=== PATIENT | male | born 1985 | race Hispanic/Latino ===

== ENCOUNTER 2018-07-09 02:47 | Emergency (ER) | payer BC, OTHER ==
[2018-07-09] MEDS ORDERED: NA CHLORIDE 0.9% 1,000 ML ONE (03:34)
[2018-07-09 03:40] LABS: Absolute Lymphocytes (CBC) 3.2 K/uL (0.7-4.9); Absolute Monocytes 0.7 K/uL (0.1-1.3); Absolute Neutrophil 4.2 K/uL (1.8-8.0); Basophils % 0.5 % (0-1.3); Hematocrit 44.4 % (39.6-49.0); Lymphocytes % 38.3 % (15.3-44.8); Monocytes % 8.9 % (3.3-12.3); RBC Red Blood Cell Count 5.61 M/uL (4.33-5.43)
[2018-07-09 03:52] LABS: ALT/SGPT 77 U/L (12-78); AST/SGOT 37 U/L (15-37); Albumin 3.8 g/dL (3.4-5.0); Alkaline Phosphatase 105 U/L (45-117); BUN Blood Urea Nitrogen 17 mg/dL (7-18); Bicarbonate 30 mmol/L (21-32); Bilirubin Direct < 0.1 mg/dL (0-0.2); Bilirubin Total 0.3 mg/dL (0.2-1.0); Glucose Level 104 mg/dL (74-106); Lipase 306 U/L (73-393); Potassium 3.8 mmol/L (3.5-5.1); Protein, Total 7.4 g/dL (6.4-8.2); Sodium Level 145 mmol/L (136-145)
[2018-07-09 05:47] LABS: Urine Blood NEGATIVE (NEG); Urine Glucose NEGATIVE (NEG); Urine Protein TRACE (NEG); Urine Specific Gravity >1.030 (1.005-1.030)
--- NOTE | 2018-07-09 05:54 | EDPHYS ---
Physician Documentation [facility] Name: Remy Hooker Age: 32 yrs Sex: Male : 1985 Arrival Date: 07/09/2018 Time: 02:49 Bed 5 Private MD: Vic Dsouza B ED Physician Ezekiel Johnston HPI: 07/09 03:07 This 32 yrs old Male presents to ER via Ambulatory with complaints of Side Abd pkl Pain. 03:07 The patient complains of pain in the left flank. The pain radiates to the left lower pkl quadrant. Onset: The symptoms/episode began/occurred 6 month(s) ago, and became worse today. Associated signs and symptoms: The patient has no apparent associated signs or symptoms. Historical: - Allergies: 03:05 No Known Allergies; lp1 - Home Meds: 03:05 None [Active]; lp1 - PMHx: 03:05 None; lp1 - PSHx: 03:05 Appendectomy; lp1 - Immunization history:: Adult Immunizations up to date. - Social history:: Smoking status: Patient/guardian denies using tobacco. - Ebola Screening: : No symptoms or risks identified at this time. ROS: 03:07 Eyes: Negative for injury, pain, redness, and discharge, ENT: Negative for injury, pkl pain, and discharge, Neck: Negative for injury, pain, and swelling, Cardiovascular: Negative for chest pain, palpitations, and edema, Respiratory: Negative for shortness of breath, cough, wheezing, and pleuritic chest pain, Abdomen/GI: Negative for abdominal pain, nausea, vomiting, diarrhea, and constipation. 03:07 Back: Positive for flank pain, on the left. 03:07 : Negative for urinary symptoms. 03:07 MS/extremity: Negative for acute changes. 03:07 Skin: Negative for rash. 03:07 Neuro: Negative for altered mental status. Exam: 03:07 Head/Face: Normocephalic, atraumatic. Eyes: Pupils equal round and reactive to light, pkl extra-ocular motions intact. Lids and lashes normal. Conjunctiva and sclera are non-icteric and not injected. Cornea within normal limits. Periorbital areas with no swelling, redness, or edema. ENT: Nares patent. No nasal discharge, no septal abnormalities noted. Tympanic membranes are normal and external auditory canals are clear. Oropharynx with no redness, swelling, or masses, exudates, or evidence of obstruction, uvula midline. Mucous membranes moist. Neck: Trachea midline, no thyromegaly or masses palpated, and no cervical lymphadenopathy. Supple, full range of motion without nuchal rigidity, or vertebral point tenderness. No Meningismus. Chest/axilla: Normal chest wall appearance and motion. Nontender with no deformity. No lesions are appreciated. Cardiovascular: Regular rate and rhythm with a normal S1 and S2. No gallops, murmurs, or rubs. Normal PMI, no JVD. No pulse deficits. Respiratory: Lungs have equal breath sounds bilaterally, clear to auscultation and percussion. No rales, rhonchi or wheezes noted. No increased work of breathing, no retractions or nasal flaring. Abdomen/GI: Soft, non-tender, with normal bowel sounds. No distension or tympany. No guarding or rebound. No evidence of tenderness throughout. 03:07 Back: pain, that is moderate, of the left flank. 03:07 : Exam negative for acute changes. 03:07 Musculoskeletal/extremity: Exam is negative for acute changes. 03:07 Skin: Exam negative for rash. 03:07 Neuro: Orientation: is normal, Mentation: is normal, Cranial nerves: grossly normal, Motor: is normal. Vital Signs: 03:05 BP 126 / 84; Pulse 72; Resp 16; Temp 98.7(O); Pulse Ox 99% on R/A; Weight 86.18 kg; lp1 Height 5 ft. 8 in. (172.72 cm); Pain 8/10; 04:13 BP 123 / 83; Pulse 66; Resp 17 S; Pulse Ox 99% on R/A; jd3 05:32 BP 126 / 84; Pulse 69; Resp 17 S; Pulse Ox 99% on R/A; jd3 03:05 Body Mass Index 28.89 (86.18 kg, 172.72 cm) lp1 MDM: 02:50 Patient medically screened. pkl 05:25 Data reviewed: vital signs, nurses notes, lab test result(s), radiologic studies, CT pkl scan. 07/09 03:06 Order name: Basic Metabolic Panel pkl 07/09 03:06 Order name: CBC with Diff; Complete Time: 04:09 pkl 07/09 03:06 Order name: Creatinine for Radiology; Complete Time: 04:09 pkl 07/09 03:06 Order name: Hepatic Function; Complete Time: 04:09 pkl 07/09 03:06 Order name: Lipase; Complete Time: 04:09 pkl 07/09 03:06 Order name: Basic Metabolic Panel; Complete Time: 04:09 EDMS 07/09 03:06 Order name: IV Saline Lock; Complete Time: 03:23 pkl 07/09 03:06 Order name: Labs collected and sent; Complete Time: 03:23 pkl 07/09 03:31 Order name: Urine Dipstick--Ancillary (enter results); Complete Time: 05:50 em1 07/09 04:10 Order name: CT Abd/Pelvis - W/Contrast pkl Administered Medications: 03:28 Drug: NS 0.9% 1000 ml Route: IV; Rate: 1000 ml; Site: right antecubital; jd3 06:02 Follow up: Response: No adverse reaction; IV Status: Completed infusion jd3 Disposition: 07/09/18 05:53 Discharged to Home. Impression: Left flank pain. - Condition is Stable. - Medication Reconciliation Form, Thank You Letter, Antibiotic Education, Prescription Opioid Use form. - Follow up: Vic Dsouza MD; When: 2 - 3 days; Reason: Re-evaluation by your physician. - Problem is new. - Symptoms have improved. Signatures: Dispatcher [employer] EDEzekiel Lepe MD MD pkl Bernadine House RN RN lp1 Bud Hackett RN RN jd3 Corrections: (The following items were deleted from the chart) 06:03 05:53 07/09/2018 05:53 Discharged to Home. Impression: Left flank pain. Condition is jd3 Stable. Forms are Medication Reconciliation Form, Thank You Letter, Antibiotic Education, Prescription Opioid Use. Follow up: Vic Dsouza; When: 2 - 3 days; Reason: Re-evaluation by your physician. Problem is new. Symptoms have improved. pkl
--- NOTE | 2018-07-09 05:54 | ER ---
Nurse's Notes [facility] Name: Remy Hooker Age: 32 yrs Sex: Male : 1985 Arrival Date: 07/09/2018 Time: 02:49 Bed 5 Private MD: Vic Dsouza B Diagnosis: Left flank pain Presentation: 07/09 03:00 Presenting complaint: Patient states: LLQ abdominal pain radiating to left flank, has lp1 been for a couple months but pain worsened now; denies any pain with urination, fever. Transition of care: patient was not received from another setting of care. Onset of symptoms was July 09, 2018. Risk Assessment: Do you want to hurt yourself or someone else? Patient reports no desire to harm self or others. Initial Sepsis Screen: Does the patient meet any 2 criteria? No. Patient's initial sepsis screen is negative. Does the patient have a suspected source of infection? No. Patient's initial sepsis screen is negative. Care prior to arrival: None. 03:00 Method Of Arrival: Ambulatory lp1 03:00 Acuity: MELISSA 3 lp1 Historical: - Allergies: 03:05 No Known Allergies; lp1 - Home Meds: 03:05 None [Active]; lp1 - PMHx: 03:05 None; lp1 - PSHx: 03:05 Appendectomy; lp1 - Immunization history:: Adult Immunizations up to date. - Social history:: Smoking status: Patient/guardian denies using tobacco. - Ebola Screening: : No symptoms or risks identified at this time. Screenin:06 Abuse screen: Denies threats or abuse. Denies injuries from another. Nutritional lp1 screening: No deficits noted. Tuberculosis screening: No symptoms or risk factors identified. Fall Risk None identified. Assessment: 03:20 General: Appears in no apparent distress. uncomfortable, Behavior is calm, cooperative, jd3 appropriate for age. Pain: Complains of pain in left flank, left upper quadrant and left lower quadrant Quality of pain is described as aching. Neuro: Level of Consciousness is awake, alert, obeys commands, Oriented to person, place, time, situation. Cardiovascular: Capillary refill < 3 seconds Patient's skin is warm and dry. Respiratory: Airway is patent Respiratory effort is even, unlabored, Respiratory pattern is regular, symmetrical. GI: Abdomen is round non-distended, Bowel sounds present X 4 quads. Abd is soft Abdomen is tender to palpation in left upper quadrant and left lower quadrant Reports lower abdominal pain, upper abdominal pain. : No signs and/or symptoms were reported regarding the genitourinary system. EENT: No signs and/or symptoms were reported regarding the EENT system. Derm: Skin is intact, Skin is dry, Skin is normal, Skin temperature is warm. Musculoskeletal: Circulation, motion, and sensation intact. Range of motion: intact in all extremities. 04:13 Reassessment: Patient appears in no apparent distress at this time. Patient and/or jd3 family updated on plan of care and expected duration. Pain level reassessed. Patient is alert, oriented x 3, equal unlabored respirations, skin warm/dry/pink. 04:15 Reassessment: Patient appears in no apparent distress at this time. Patient and/or jd3 family updated on plan of care and expected duration. Pain level reassessed. Patient is alert, oriented x 3, equal unlabored respirations, skin warm/dry/pink. 05:15 Reassessment: Patient appears in no apparent distress at this time. Patient and/or jd3 family updated on plan of care and expected duration. Pain level reassessed. Patient is alert, oriented x 3, equal unlabored respirations, skin warm/dry/pink. Patient states feeling better. Vital Signs: 03:05 BP 126 / 84; Pulse 72; Resp 16; Temp 98.7(O); Pulse Ox 99% on R/A; Weight 86.18 kg; lp1 Height 5 ft. 8 in. (172.72 cm); Pain 8/10; 04:13 BP 123 / 83; Pulse 66; Resp 17 S; Pulse Ox 99% on R/A; jd3 05:32 BP 126 / 84; Pulse 69; Resp 17 S; Pulse Ox 99% on R/A; jd3 03:05 Body Mass Index 28.89 (86.18 kg, 172.72 cm) lp1 ED Course: 02:49 Patient arrived in ED. ds1 02:49 Vic Dsouza MD is Private Physician. ds1 02:50 Ezekiel Johnston MD is Attending Physician. pkl 03:02 Triage completed. lp1 03:06 Arm band placed on left wrist. lp1 03:20 Inserted saline lock: 20 gauge in right antecubital area, using aseptic technique. jd3 Blood collected. 03:27 Bud Hackett, RN is Primary Nurse. jd3 03:31 Patient has correct armband on for positive identification. Bed in low position. Call jd3 light in reach. Side rails up X 1. Adult w/ patient. 04:29 Patient moved to PR via wheelchair. kw1 04:39 CT Abd/Pelvis - W/Contrast In Process Unspecified. EDMS 04:39 CT completed. Patient tolerated procedure well. Patient moved back from PR. kw1 05:52 Vic Dsouza MD is Referral Physician. pkl 06:01 No provider procedures requiring assistance completed. IV discontinued, intact, jd3 bleeding controlled, No redness/swelling at site. Pressure dressing applied. Administered Medications: 03:28 Drug: NS 0.9% 1000 ml Route: IV; Rate: 1000 ml; Site: right antecubital; jd3 06:02 Follow up: Response: No adverse reaction; IV Status: Completed infusion jd3 Outcome: 05:53 Discharge ordered by . pkl 06:01 Discharged to home ambulatory, with family. jd3 06:01 Condition: stable 06:01 Discharge instructions given to patient, Instructed on discharge instructions, follow up and referral plans. Demonstrated understanding of instructions, follow-up care. 06:03 Patient left the ED. jd3 Signatures: Dispatcher [employer] Ezekiel Hughes MD MD pkSaskia Edmonds ds1 Bernadine House RN RN lp1 Bud Hackett RN RN jDelfina Hendricks kw1
[2018-07-09 06:08] VITALS: TEMP 98.7; O2SAT 99
[2018-07-09 06:10] VITALS: BP 126/84
--- NOTE | 2018-07-09 08:10 | RAD REPORT ---
EXAM DESCRIPTION: CT - Abdomen Pelvis W Contrast - 07/09/2018 6:59 am CLINICAL HISTORY: Abdominal pain left lower quadrant pain. COMPARISON: 2017 TECHNIQUE: Computed axial tomography of the abdomen pelvis was obtained. 100 cc Isovue-300 was admin istered intravenously. Oral contrast was not requested which limits evaluation of bowel.A preliminary report generated by [employer] and reviewed prior to dictation All CT scans are performed using dose optimization technique as appropriate and may include automated exposure control or mA/KV adjustment according to patient size. FINDINGS: The liver, spleen, pancreas, adrenal and kidneys appear unremarkable. There is no evidence of diverticulitis. The appendix is been removed. IMPRESSION: No acute abnormality is displayed.
== END 2018-07-09 06:03 | disposition home or self-care (01) ==
LOC: ER 02:47
DX: R10.9 Unspecified abdominal pain (principal)
CPT/HCPCS: 36415; 74177; 80048; 80076; 81003; 83690; 85025; 96360; 96361; 99284; J7030; Q9967

== ENCOUNTER 2022-03-29 20:44 | Emergency (ER) | payer OTHER ==
--- OUTSIDE RECORDS SUMMARY | 2022-03-29 20:48 | XMS REPORT | Continuity of Care Document ---
:1985 Author Organization [facility] t Address [address] [place] [address] Care Team Providers Name Role Phone Vic Dsouza Jenaro Primary Care Physician Nurse, Adc Pob Immunization Attending Clinician Unavailable Buster Kaur DO Attending Clinician BUSTER KAUR Attending Clinician Unavailable CONSTANTINO AGUILAR Attending Clinician Unavailable Lab, Adc Fam Pob I Attending Clinician Unavailable Linda Myles Attending Clinician LINDA MERCADO Attending Clinician Unavailable Payers Payer Name Policy Type Policy Number Effective Date Expiration Date Candi SOLARES O [id number] 2015 00:00:00 Problems This patient has no known problems. Allergies, Adverse Reactions, Alerts Allergy Allergy Status Severity Reaction(s) Onset Inactive Treating Comm ents Source Name Type Date Date Clinician NO KNOWN Drug Active [facility] ALLERGIE Class ity of [facility] Social History Social Habit Start Date Stop Date Quantity Comments Source Exposure to Not sure [facility] SARS-CoV-2 (event) Medica l Branch Sex Assigned At [birth year] [facility] 00:00:00 00:00:00 [facility] Smoking Status Start Date Stop Date Source Unknown if ever smoked [facility] Medications Ordered Filled Start Stop Current Ordering Indication Dosage Frequency Signature Comments Components Source Medication Medication Date Date Medication? Clinician (SIG) Name Name No known 2016-0 No Univers medications 7-06 ity of 21:24: [address] No known No Univers medications ity of [facility] Immunizations Ordered Filled Immunization Date Status Comments Sourc e Immunization Name Name SARS-COV-2 COVID-19 2021-06-23 Completed Unive rsity of PFIZER VACCINE 00:00:00 [facility] SARS-COV-2 COVID-19 2020-10-31 Completed Unive rsity of PFIZER VACCINE 00:00:00 [facility] SARS-COV-2 COVID-19 2020-10-10 Completed Unive rsity of PFIZER VACCINE 00:00:00 [facility] Procedures Procedure Date / Time Performed Performing Clinician Sour e SARS-COV-2 COVID-19 2021-06-23 17:42:36 Doctor Unassigned, No [facility] [place] VACCINE,0.3ML,IM Name [facility] (PFIZER) Encounters Start End Encounter Admission Attending Care Care Encounter Source Date/Time Date/Time Type Type Clinicians Facility Department ID 2021-06-23 2021-06-23 Imm/Inj Nurse, Adc Pob Immunization [facility] [id number] Univers 11:20:00 11:20:00 Visit [facility]uster [id number] [id number] Jessica ALICIA [id number] [place] dical [address] 2021-06-23 2021-06-23 Outpatient Leeanne KAUR [facility] [id number] Univers 11:20:00 11:10:55 BUSTER itkathia [facility] 2020-10-31 2020-10-31 Outpatient [facility] [id number] Univers 08:30:00 08:30:00 ity [facility] 2020-10-31 2020-10-31 Outpatient Leeanne AGUILAR [facility] [id number] Univers 08:00:00 08:00:00 [facility] 2020-10-10 2020-10-10 Outpatient Leeanne AGUILAR [facility] [id number] Univers 08:10:00 08:10:00 CONSTANTINO [facility] 2020-07-13 2020-07-13 Management Consultant Lab, Adc Fam Pob I [facility] [id number] Univers 18:47:58 19:02:58 Visit Rogelio [facility] [id number] [facility] [id number] Dereck as Profmaliaio [id number] [place] [address] [employer] 2020-07-13 2020-07-13 Outpatient R ROGELIO [facility] [id number] Univers 19:00:00 19:00:00 [facility] Results This patient has no known results.
[2022-03-29] MEDS ORDERED: NA CHLORIDE 0.9% 1,000 ML ONE (21:38)
[2022-03-29 21:53] LABS: Urine Blood Negative (Negative); Urine Glucose Negative (Negative); Urine Protein Negative (Negative)
[2022-03-29 21:56] LABS: Absolute Lymphocytes (CBC) 2.8 K/uL (0.7-4.9); Hematocrit 45.3 % (39.6-49.0); Lymphocytes % 23.3 % (15.3-44.8); MCV 80.6 fL (80-100); MPV 9.5 fL (7.6-11.3); RBC Red Blood Cell Count 5.63 M/uL (4.33-5.43)
[2022-03-29 22:00] LABS: Urine Mucus Slight /HPF (None Seen); Urine RBC <5 /HPF (None Seen)
--- NOTE | 2022-03-29 22:10 | RAD REPORT ---
EXAM DESCRIPTION: CT - Abdomen Pelvis W Contrast - 03/29/2022 10:01 pm CLINICAL HISTORY: Abdominal pain COMPARISON: 2019 TECHNIQUE: Computed axial tomography of the abdomen pelvis was obtained. 100 cc Isovue-300 was admin istered intravenously. Oral contrast was not requested which limits evaluation of bowel and appendix All CT scans are performed using dose optimization technique as appropriate and may include automated exposure control or mA/KV adjustment according to patient size. FINDINGS: Mild fatty liver Spleen, pancreas, adrenal and kidneys appear unremarkable. There is no evidence of diverticulitis. Appendectomy IMPRESSION: No acute abnormality is displayed.
[2022-03-29 22:31] LABS: Bilirubin Total 0.4 mg/dL (0.2-1.0); Protein, Total 7.9 g/dL (6.4-8.2)
--- NOTE | 2022-03-29 23:18 | ER ---
Nurse's Notes [facility] Name: Remy Hooker Age: 36 yrs Sex: Male : 1985 Arrival Date: 03/29/2022 Time: 20:46 Bed 10 Private MD: Diagnosis: Abdominal pain, unspecified Presentation: 03/29 20:50 Chief complaint: Abdominal pain, anorexia, and constipation x 3 days. Denies N/V/fever. hb Coronavirus screen: At this time, the client does not indicate any symptoms associated with coronavirus-19. Ebola Screen: No symptoms or risks identified at this time. Initial Sepsis Screen: Does the patient meet any 2 criteria? No. Patient's initial sepsis screen is negative. Does the patient have a suspected source of infection? No. Patient's initial sepsis screen is negative. Risk Assessment: Do you want to hurt yourself or someone else? Patient reports no desire to harm self or others. Onset of symptoms was March 26, 2022. 20:50 Method Of Arrival: Ambulatory hb 20:50 Acuity: MELISSA 3 hb Triage Assessment: 20:51 General: Appears in no apparent distress. uncomfortable, Behavior is calm, cooperative. hb Pain: Pain currently is 4 out of 10 on a pain scale. at worst was 8 out of 10 on a pain scale. Neuro: Level of Consciousness is awake, alert, obeys commands, Oriented to person, place, time, situation. Cardiovascular: Patient's skin is warm and dry. Respiratory: Respiratory effort is even, unlabored, Respiratory pattern is regular, symmetrical. GI: Reports lower abdominal pain, upper abdominal pain, constipation. Historical: - Allergies: 20:52 No Known Allergies; hb - Home Meds: 20:52 None [Active]; hb - PMHx: 20:52 None; hb - PSHx: 20:52 Appendectomy; hb - Immunization history:: Adult Immunizations up to date. - Social history:: Smoking status: Patient denies any tobacco usage or history of. Screenin:45 Abuse screen: Denies threats or abuse. Nutritional screening: No deficits noted. bb Tuberculosis screening: No symptoms or risk factors identified. Fall Risk None identified. Assessment: 21:45 General: Appears in no apparent distress. uncomfortable, Behavior is calm, cooperative. bb Pain: Complains of pain in abdomen. Neuro: Level of Consciousness is awake, alert, obeys commands, Oriented to person, place, time, situation. Cardiovascular: Capillary refill < 3 seconds Patient's skin is warm and dry. Respiratory: Airway is patent Respiratory effort is even, unlabored, Respiratory pattern is regular. GI: Bowel sounds present X 4 quads. Abd is soft X 4 quads Abdomen is tender to palpation X 4 quads. Derm: Skin is pink, warm \T\ dry. Musculoskeletal: Circulation, motion, and sensation intact. 23:14 Reassessment: Patient is alert, oriented x 3, equal unlabored respirations, skin bb warm/dry/pink. awaiting provider interpretation of diagnostic results. 23:30 Reassessment: Patient is alert, oriented x 3, equal unlabored respirations, skin bb warm/dry/pink. pt verbalized understanding of and agrees to plan of care discharge instructions given pt ambulated with steady gait to exit accompanied by family. Vital Signs: 20:50 BP 132 / 92; Pulse 91; Resp 16; Temp 98.4; Pulse Ox 100% on R/A; Weight 90.72 kg; hb Height 5 ft. 8 in. (172.72 cm); Pain 4/10; 23:31 BP 124 / 82; Pulse 71; Resp 16 S; Temp 98.8(O); Pulse Ox 99% on R/A; bb 20:50 Body Mass Index 30.41 (90.72 kg, 172.72 cm) hb ED Course: 20:46 Patient arrived in ED. jj6 20:52 Triage completed. hb 20:52 Arm band placed on. hb 21:24 Miguel Resendiz MD is Attending Physician. sp3 21:45 Patient has correct armband on for positive identification. Placed in gown. Bed in low bb position. Call light in reach. Side rails up X 1. Adult w/ patient. Warm blanket given. 21:45 Initial lab(s) drawn, by me, sent to lab. Urine collected: clean catch specimen, clear. bb Inserted saline lock: 20 gauge in right antecubital area, using aseptic technique. Blood collected. 21:49 Belkis Haddad, LEAH is Primary Nurse. bb 22:04 CT Abd/Pelvis - IV Contrast Only In Process Unspecified. EDMS 23:31 No provider procedures requiring assistance completed. IV discontinued, intact, bb bleeding controlled, No redness/swelling at site. Pressure dressing applied. Administered Medications: 21:49 Drug: NS 0.9% 1000 ml Route: IV; Rate: 1 bolus; Site: right antecubital; bb 23:32 Follow up: IV Status: Order to discontinue infusion; IV Intake: 850ml bb Medication: 21:45 VIS not applicable for this client. bb Intake: 23:32 IV: 850ml; Total: 850ml. bb Outcome: 23:18 Discharge ordered by MD. salomon 23:32 Discharged to home ambulatory, with family. bb 23:32 Condition: stable 23:32 Discharge instructions given to patient, Instructed on discharge instructions, follow up and referral plans. medication usage, Demonstrated understanding of instructions, follow-up care, medications, Prescriptions given X 1. 23:32 Patient left the ED. bb Signatures: Dispatcher [employer] Belkis Cee RN RN bb Baxter, Heather, RN RN hb Patel, Setul, MD MD sp3 Leigha Mayberry [email or web address]
--- NOTE | 2022-03-29 23:19 | EDPHYS ---
Physician Documentation [facility] Name: Remy Hooker Age: 36 yrs Sex: Male : 1985 Arrival Date: 03/29/2022 Time: 20:46 Bed 10 Private MD: ED Physician Miguel Resendiz HPI: 03/29 21:36 This 36 yrs old Male presents to ER via Ambulatory with complaints of sp3 Abdominal Cramping, Constipation. 21:36 36-year-old male with no significant past medical history past surgical history of an sp3 appendectomy presents with left-sided abdominal pain x3 days that is progressively getting worse. He got worse today which prompted him to come to the ED for evaluation. Patient had a similar episode back in 2019 at which time he was seen here and had a negative work-up which included laboratory values and a CT scan of the abdomen and pelvis. Patient denies any fever, chest pain, back pain, vomiting, diarrhea, melena, bright red blood per rectum, does have mild flank pain bilaterally which comes and goes. Review of systems otherwise negative.. Historical: - Allergies: 20:52 No Known Allergies; hb - Home Meds: 20:52 None [Active]; hb - PMHx: 20:52 None; hb - PSHx: 20:52 Appendectomy; hb - Immunization history:: Adult Immunizations up to date. - Social history:: Smoking status: Patient denies any tobacco usage or history of. ROS: 21:37 Constitutional: Negative for fever, chills, and weight loss, Eyes: Negative for injury, sp3 pain, redness, and discharge, ENT: Negative for injury, pain, and discharge, Neck: Negative for injury, pain, and swelling, Cardiovascular: Negative for chest pain, palpitations, and edema, Respiratory: Negative for shortness of breath, cough, wheezing, and pleuritic chest pain, : Negative for injury, bleeding, discharge, and swelling, MS/Extremity: Negative for injury and deformity, Skin: Negative for injury, rash, and discoloration, Neuro: Negative for headache, weakness, numbness, tingling, and seizure, Psych: Negative for depression, anxiety, suicide ideation, homicidal ideation, and hallucinations, Allergy/Immunology: Negative for hives, rash, and allergies, Endocrine: Negative for neck swelling, polydipsia, polyuria, polyphagia, and marked weight changes. 21:37 All other systems are negative. Exam: 21:37 Constitutional: This is a well developed, well nourished patient who is awake, alert, sp3 and in no acute distress. Head/Face: Normocephalic, atraumatic. Eyes: Pupils equal round and reactive to light, extra-ocular motions intact. Lids and lashes normal. Conjunctiva and sclera are non-icteric and not injected. Cornea within normal limits. Periorbital areas with no swelling, redness, or edema. ENT: Nares patent. No nasal discharge, no septal abnormalities noted. External auditory canals are clear. Oropharynx with no redness, swelling, or masses, exudates, or evidence of obstruction, uvula midline. Mucous membranes moist. Neck: Trachea midline, no thyromegaly or masses palpated, and no cervical lymphadenopathy. Supple, full range of motion without nuchal rigidity, or vertebral point tenderness. No Meningismus. Chest/axilla: Normal chest wall appearance and motion. Nontender with no deformity. No lesions are appreciated. Cardiovascular: Regular rate and rhythm with a normal S1 and S2. No gallops, murmurs, or rubs. Normal PMI, no JVD. No pulse deficits. Respiratory: Lungs have equal breath sounds bilaterally, clear to auscultation and percussion. No rales, rhonchi or wheezes noted. No increased work of breathing, no retractions or nasal flaring. Back: No spinal tenderness. No costovertebral tenderness. Full range of motion. Skin: Warm, dry with normal turgor. Normal color with no rashes, no lesions, and no evidence of cellulitis. MS/ Extremity: Pulses equal, no cyanosis. Neurovascular intact. Full, normal range of motion. Neuro: Awake and alert, GCS 15, oriented to person, place, time, and situation. Cranial nerves II-XII grossly intact. Motor strength 5/5 in all extremities. Sensory grossly intact. Cerebellar exam normal. Normal gait. Psych: Awake, alert, with orientation to person, place and time. Behavior, mood, and affect are within normal limits. 21:37 Abdomen/GI: She has left-sided abdominal pain to palpation. There is no rebound or guarding or peritoneal signs. Bowel sounds are normal.. Vital Signs: 20:50 BP 132 / 92; Pulse 91; Resp 16; Temp 98.4; Pulse Ox 100% on R/A; Weight 90.72 kg; hb Height 5 ft. 8 in. (172.72 cm); Pain 4/10; 23:31 BP 124 / 82; Pulse 71; Resp 16 S; Temp 98.8(O); Pulse Ox 99% on R/A; bb 20:50 Body Mass Index 30.41 (90.72 kg, 172.72 cm) hb MDM: 21:34 Patient medically screened. sp3 21:38 Data reviewed: vital signs, nurses notes. ED course: 36-year-old male with left-sided sp3 abdominal pain. Differential diagnosis includes diverticular disease, constipation, functional abdominal pain, gastritis, partial SBO. Will obtain CT scan of the abdomen and pelvis and laboratory values. Patient declined any pain medication or nausea medication at this time. Patient will remain n.p.o. Disposition will be based on patient course and work-up.. 23:17 ED course: Workup negative -- pt is feeling better -- will d/c home . 3 03/29 21:26 Order name: CBC with Diff; Complete Time: 23:16 3 03/29 21:26 Order name: CMP; Complete Time: 23:16 3 03/29 21:26 Order name: Lipase; Complete Time: 23:16 3 03/29 21:26 Order name: Urine Microscopic Only; Complete Time: 23:16 3 03/29 21:54 Order name: Urine Dipstick-Ancillary; Complete Time: 23:16 [facility] [place] 03/29 22:15 Order name: CREATININE WHOLE BLOOD; Complete Time: 23:16 [facility] [place] 03/29 21:26 Order name: CT Abd/Pelvis - IV Contrast Only; Complete Time: 23:16 3 03/29 21:26 Order name: IV Saline Lock; Complete Time: 21:49 3 03/29 21:26 Order name: Labs collected and sent; Complete Time: 21:49 3 03/29 21:26 Order name: Urine Dipstick-Ancillary (obtain specimen); Complete Time: 21:47 sp3 Administered Medications: 21:49 Drug: NS 0.9% 1000 ml Route: IV; Rate: 1 bolus; Site: right antecubital; bb 23:32 Follow up: IV Status: Order to discontinue infusion; IV Intake: 850ml bb Disposition Summary: 03/29/22 23:18 Discharge Ordered Location: Home sp3 Condition: Stable sp3 Diagnosis - Abdominal pain, unspecified sp3 Followup: sp3 - With: Private Physician - When: As needed - Reason: Recheck today's complaints Discharge Instructions: - Discharge Summary Sheet sp3 - Abdominal Pain, Adult sp3 Forms: - Medication Reconciliation Form sp3 - Thank You Letter sp3 - Antibiotic Education sp3 - Prescription Opioid Use sp3 Prescriptions: - dicyclomine 10 mg Oral Capsule - take 1 capsule by ORAL route 3 times per day; 20 capsule; Refills: 0, Product sp3 Selection Permitted Signatures: Dispatcher [employer] Belkis Cee RN RN bb Baxter, Heather, RN RN hb Patel, Setul, MD MD sp3
== END 2022-03-29 23:32 | disposition home or self-care (01) ==
LOC: ER 20:44
DX: R10.9 Unspecified abdominal pain (principal)
CPT/HCPCS: 85025; 36415; 82565; 83690; 80053; 74177; Q9967; J7030; 81003; 81015; 96360; 96361; 99284